=== PATIENT | male | born 1995 | race Caucasian/White ===

== ENCOUNTER 2019-02-17 22:54 | Emergency (ER) | payer SELFPAY ==
[~2019-02-17] VITALS: Ht 177.8 cm; Wt 103.9 kg
[2019-02-17 23:15] VITALS: Ht 177.8 cm; Wt 103.9 kg
[2019-02-18 01:49] VITALS: BP 142/73
== END 2019-02-18 01:49 | disposition home or self-care (01) ==
LOC: ED 22:54
DX: S40.022A Contusion of left upper arm, initial encounter (principal); W20.8XXA Other cause of strike by thrown, projected or falling object, initial encounter; Y93.89 Activity, other specified; Y92.89 Other specified places as the place of occurrence of the external cause; Y99.8 Other external cause status
CPT/HCPCS: Q0092

== ENCOUNTER 2019-11-23 12:30 | Emergency (ER) | payer SELFPAY ==
[~2019-11-23] VITALS: Ht 177.8 cm; Wt 104.3 kg
[2019-11-23 13:27] VITALS: Ht 177.8 cm; Wt 104.3 kg
[2019-11-23 14:50] VITALS: BP 136/72
== END 2019-11-23 14:50 | disposition home or self-care (01) ==
LOC: ED 12:30
DX: J06.9 Acute upper respiratory infection, unspecified (principal); R51 Headache; R11.10 Vomiting, unspecified
CPT/HCPCS: J1100

== ENCOUNTER 2019-11-25 18:06 | Emergency (ER) | payer SELFPAY ==
[~2019-11-25] VITALS: Ht 177.8 cm; Wt 103.4 kg
[2019-11-25 18:12] VITALS: Ht 177.8 cm; Wt 103.4 kg
[2019-11-25 22:29] VITALS: BP 145/99
== END 2019-11-25 22:29 | disposition home or self-care (01) ==
LOC: ED 18:06
DX: J40 Bronchitis, not specified as acute or chronic (principal); J06.9 Acute upper respiratory infection, unspecified
CPT/HCPCS: J7613